=== PATIENT | female | born 1940 | race Caucasian/White ===

== ENCOUNTER 2016-05-23 09:24 | Emergency (ER) | payer OTHER ==
[~2016-05-23] VITALS: Ht 149.9 cm; Wt 72.7 kg
[2016-05-23 09:37] VITALS: Ht 149.9 cm; Wt 72.7 kg
--- NOTE | 2016-05-23 09:55 | RADRPT ---
PROCEDURE: XR Chest AP portable CLINICAL INDICATION: Chest pain TECHNIQUE: An AP portable radiograph of the chest was submitted. COMPARISON: None. FINDINGS: Support Hardware: None Cardiovascular: The heart is mildly enlarged and the pulmonary vasculature reflects pulmonary venous obstruction. Lung Marcelo: Minimal discoid atelectasis is seen at the left lung base. Pleural Spaces: No pneumothorax or pleural effusion is identified. Osseous Structures: The osseous structures appear intact. Soft Tissues: The soft tissues appear generous. IMPRESSION: 1. Mild cardiomegaly with the pulmonary vasculature reflecting pulmonary venous obstruction. 2. Minimal discoid atelectasis seen at the left lung base. Physician Jeanmarie Date Time Electronically viewed and signed by Physician Jeanmarie on 05/23/2016 09:55 /
[2016-05-23 10:03] LABS: BASOPHILS % 0.2 % (0.0-2.0); EOSINOPHILS # 0.1 10^3/ul (0.0-0.5); EOSINOPHILS % 1.2 % (0.0-7.0); HEMATOCRIT 38.1 % (37.0-47.0); HEMOGLOBIN 12.1 g/dl (12.0-16.0); LYMPHOCYTES # 1.8 10^3/ul (0.8-2.9); MEAN CORPUSCULAR HEMOGLOBIN 22.7 pg (29.0-33.0); MEAN CORPUSCULAR HGB CONC 31.8 g/dl (32.0-37.0); MEAN CORPUSCULAR VOLUME 71.2 fl (82.0-101.0); MEAN PLATELET VOLUME 8.6 fl (7.4-10.4); MONOCYTE # 0.6 10^3/ul (0.3-0.9); NEUTROPHIL # 6.1 10^3/ul (1.6-7.5); NEUTROPHILS % 70.6 % (39.0-77.0); PLATELET COUNT 212 10^3/UL (140-440); RED BLOOD COUNT 5.35 10^6/ul (4.20-5.40); RED CELL DISTRIBUTION WIDTH 14.9 % (11.5-14.5); UNCORRECTED WBC 8.6 10^3/ul (4.8-10.8); WHITE BLOOD COUNT 8.6 10^3/ul (4.8-10.8)
[2016-05-23 10:07] LABS: CONDITION 1; LH ANALYZER COMMENTS 1
[2016-05-23 10:13] LABS: POTASSIUM 3.9 mmol/L (3.5-5.1)
[2016-05-23 10:16] LABS: CREATININE 0.73 mg/dl (0.44-1.00)
[2016-05-23 10:17] LABS: MAGNESIUM 1.9 mg/dl (1.7-2.5)
[2016-05-23 10:18] LABS: INR 0.93; PARTIAL THROMBOPLASTIN TIME 32.9 Sec (25.0-35.0); PROTIME 12.5 Sec (12.2-14.2)
--- NOTE | 2016-05-23 10:20 | ERA ---
ER Documentation Chief Complaint Date/Time DATE: 05/23/16 TIME: 10:18 Chief Complaint BROUGHT IN VIA EMS FROM HOME DUE TO SVT THAT WAS CONVERTED AT THE FIELD HPI 75-year-old female history of hypertension, hyperlipidemia who presents with new onset SVT. Patient is Amharic speaking. 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 Patient is a limited historian. The patient states that she woke up this morning with palpitations. EMS notes heart rate in the 200s with SVT on rhythm strip. The patient was given adenosine 6 mg with conversion. The patient denies any chest pain, no lightheadedness dizziness shortness of breath. No fevers or chills. ROS All systems reviewed and are negative except as per history of present illness. Medications Home Meds Reported Medications Levetiracetam* (Keppra*) 500 Mg Tablet, 500 MG PO BID, TAB 05/23/16 Tramadol Hcl* (Ultram*) 50 Mg Tablet, 50 MG PO Q8 Y for PAIN, TAB 05/23/16 Gabapentin* (Gabapentin*) 100 Mg Capsule, 100 MG PO TID, #90 CAP 05/23/16 Aspirin* (Aspirin* EC) 81 Mg Tablet.dr, 81 MG PO DAILY, TAB 05/23/16 Amlodipine Besylate* (Norvasc*) 5 Mg Tablet, 5 MG PO DAILY, TAB 05/23/16 Benazepril Hcl* (Benazepril Hcl*) 10 Mg Tablet, 10 MG PO DAILY, #30 TAB 05/23/16 Metformin* (Glucophage*) 500 Mg Tab, 500 MG PO BID, #30 TAB 05/23/16 Metoprolol Succinate* (Toprol XL*) 50 Mg Tab.er.24h, 50 MG PO DAILY, #30 TAB 05/23/16 Hydralazine Hcl* (Hydralazine Hcl*) 25 Mg Tab, 25 MG PO BID, #90 TAB 05/23/16 Allergies Allergies: Coded Allergies: No Known Allergy (Unverified , 05/23/16) PMhx/Soc Medical and Surgical Hx: Unable to obtain Hx Alcohol Use: No Hx Substance Use: No Hx Tobacco Use: No Smoking Status: Never smoker FmHx Family History: No diabetes Physical Exam Vitals Vital Signs Date Time Temp Pulse Resp B/P Pulse Ox O2 Delivery O2 Flow Rate FiO2 05/23/16 10:43 Nasal Cannula 2 05/23/16 09:37 98.5 104 20 136/102 98 Physical Exam General: Well developed, well nourished, no acute distress Head: Normocephalic, atraumatic. Eyes: Pupils equally reactive, EOM intact ENT: Moist mucous membranes Neck: Supple, no lymphadenopathy Respiratory: Lungs clear bilaterally, no distress Cardiovascular: RRR, no murmurs, rubs, or gallops Abdominal: Soft, non-tender, non-distended, no peritoneal signs : Deferred MSK: No edema, no unilateral swelling, 5/5 strength Neurologic: Alert and oriented, moving all extremities, normal speech, no focal weakness, no cerebellar signs Skin: No rash Psych: Normal mood Result Diagram: 05/23/1650 05/23/1650 Results 24 hrs Laboratory Tests Test 05/23/16 09:50 Activated Partial Thromboplast Time 32.9Sec Anion Gap 17 Basophils # 0.010^3/ul Basophils % 0.2% Blood Morphology Comment Blood Urea Nitrogen 12mg/dl Calcium Level 9.0mg/dl Carbon Dioxide Level 30mmol/L Chloride Level 101mmol/L Creatinine 0.73mg/dl Eosinophils # 0.110^3/ul Eosinophils % 1.2% Glucose Level 222mg/dl Hematocrit 38.1% Hemoglobin 12.1g/dl INR International Normalized Ratio 0.93 Lymphocytes # 1.810^3/ul Lymphocytes % 21.0% Magnesium Level 1.9mg/dl Mean Corpuscular Hemoglobin 22.7pg Mean Corpuscular Hemoglobin Concent 31.8g/dl Mean Corpuscular Volume 71.2fl Mean Platelet Volume 8.6fl Monocytes # 0.610^3/ul Monocytes % 7.0% Neutrophils # 6.110^3/ul Neutrophils % 70.6% Nucleated Red Blood Cells # 0.010^3/ul Nucleated Red Blood Cells % 0.0/100WBC Platelet Count 81285^3/UL Potassium Level 3.9mmol/L Prothrombin Time 12.5Sec Prothrombin Time Ratio 1.0 Red Blood Count 5.3510^6/ul Red Cell Distribution Width 14.9% Sodium Level 144mmol/L Troponin I 0.013ng/ml White Blood Count 8.610^3/ul Procedures/MDM EKG, MONITORS, & DIAGNOSTIC IMAGING: EKG: I reviewed and interpreted a 12-lead EKG. Rhythm: Normal sinus rhythm Ectopy: None Intervals: No abnormalities ST segments: No elevations or depressions T waves: No contiguous inversions Repeat EKG: EKG: I reviewed and interpreted a 12-lead EKG. Rhythm: Normal sinus rhythm Ectopy: None Intervals: No abnormalities ST segments: No elevations or depressions T waves: No contiguous inversions Rhythm strip: #1 Rate/Rhythm: Supraventricular tachycardia rate greater than 200 Impression: No evidence of ischemia or arrhythmia Rhythm strip #2 Rhythm strip: Rate/Rhythm: Normal Sinus Rhythm Impression: No evidence of ischemia or arrhythmia LAB INTERPRETATION: Negative troponin MEDICAL DECISION MAKING: The patient presents with new onset SVT. I spoke to the patient's primary care physician Dr. Painting. He states that the patient has never been diagnosed with SVT, she does not have a current echocardiogram on file. He recommends inpatient hospitalization. The patient had conversion with 6 mg of adenosine. Concern for possible structural heart disease. The patient may benefit from inpatient hospitalization, telemetry monitoring and echocardiogram. No signs or symptoms concerning for pulmonary embolism. ER COURSE: The patient remains resting comfortably. The family has arrived. It is possible the patient has had this in the past but they have never been told that the patient is a CT. She takes metoprolol. The patient's primary care physician did not recall a diagnosis of SVT. The patient is asymptomatic. Her primary care physician wishes her to be admitted for further management of SVT, echocardiogram. Patient is capitated to [facility] for transfer via ALS. Patient has been accepted by Dr. Martell. Family informed of transfer. I kept the patient and/or family informed of laboratory and diagnostic imaging results throughout the emergency room course. DISPOSITION PLAN: Telemetry admission at [facility] CONSULTATION: Accepting care team and consultations: I discussed the current laboratory data, diagnostic imaging and emergency care provided. Admitting team: Dr. Martell Admitting team indication: Insurance directed Consulting services: Primary care physician Dr. Sepulveda Departure Diagnosis: Primary Impression: Supraventricular tachycardia Condition: Stable CASSIE TRUONG MD May 23, 2016 10:20
[2016-05-23 10:28] LABS: TROPONIN-I 0.013 ng/ml (0.00-0.12)
[2016-05-23] MEDS ORDERED: HYDR-3671 PO (10:47)
[2016-05-23] MEDS ORDERED: METO50TA16 PO (10:48)
[2016-05-23] MEDS ORDERED: AMLO5TAB4 PO (10:48)
[2016-05-23] MEDS ORDERED: METF500T4 PO (10:48)
[2016-05-23] MEDS ORDERED: BENA10TA48 PO (10:48)
[2016-05-23] MEDS ORDERED: GABA100C14 PO (10:49)
[2016-05-23] MEDS ORDERED: ASPI-664 PO (10:49)
[2016-05-23] MEDS ORDERED: TRAM-40 PO (10:49)
[2016-05-23] MEDS ORDERED: LEVE-5 PO (10:50)
[2016-05-23 13:53] VITALS: BP 122/66; PULSE 73; RESP 18; TEMP 98.5
== END 2016-05-23 18:04 | disposition short-term general hospital (02) ==
LOC: E/R 09:24
DX: I47.1 Supraventricular tachycardia (principal); I10 Essential (primary) hypertension; R07.9 Chest pain, unspecified; Z79.84 Long term (current) use of oral hypoglycemic drugs; Z79.82 Long term (current) use of aspirin
CPT/HCPCS: 36415; 71010; 80048; 83735; 84484; 85025; 85610; 85730